=== PATIENT | male | born 1980 | race Caucasian/White ===

== ENCOUNTER → 2018-03-21 09:44 | Outpatient (CLI) | payer BC, SELFPAY ==
--- NOTE | 2018-03-21 09:52 | RAD_ITS ---
STUDY: X-RAY - ABDOMEN/PELVIS REASON FOR EXAM: Male, 37 years old. Right upper quadrant pain for 2 days. TECHNIQUE: AP supine and upright views of the abdomen and pelvis on 3 films. COMPARISON: None. FINDINGS: Normal visualized lung bases. There is a nonspecific pattern of gas in nondistended segments of small bowel and colon. There is no demonstrated free abdominal air. The visualized liver, spleen and kidneys are grossly normal in size and morphology. There are calcified phleboliths in the pelvis. There is a mild levoscoliosis of the lumbar spine when the patient isn't upright position. RAD/Abd Inc Decub and/or Erect IMPRESSION: Nonspecific bowel gas pattern. No free gas. Electronically Signed: Cliff Payton MD at 10:24 EDT , Service support ,
--- NOTE | 2018-03-21 09:54 | RAD_ITS ---
STUDY: X-RAY CHEST REASON FOR EXAM: Male, 37 years old. Shortness of breath, dyspnea. TECHNIQUE: PA and lateral views of the chest. COMPARISON: PA and lateral views of the chest on 3 films September 27, 2015. FINDINGS: The lungs are clear and expanded. There is no demonstrated pleural abnormality. Normal size heart. Normal mediastinum and catherine. Normal visualized pulmonary arteries. Normal visualized aortic arch and descending thoracic aorta. There is a stable mild levoscoliosis of the upper thoracic spine. Normal visualized ribs, clavicles, and shoulders. There is no demonstrated abnormality of the visualized soft tissue structures of the upper abdomen. RAD/Chest PA and Lateral IMPRESSION: No acute cardiopulmonary disease. Electronically Signed: Cliff Payton MD at 10:04 EDT , Service support ,
== END ==
PROVIDERS: Family Provider Family Medicine; PCP Family Medicine; Visit Provider Physician Assistant Medical
DX: R06.02 Shortness of breath (principal)
CPT/HCPCS: 71046; 74019

== ENCOUNTER → 2021-04-25 | Outpatient (CLI) | payer OTHER, SELFPAY ==
[2021-04-26 20:08] LABS: Covid Inpatient test code BILL Performed (.)
== END | disposition home or self-care (01) ==
PROVIDERS: PCP Family Medicine; Visit Provider Physician Assistant
DX: J02.9 Acute pharyngitis, unspecified (principal)
CPT/HCPCS: 87635; U0005; U0003

== ENCOUNTER 2021-04-30 06:57 | Emergency (ER) | payer OTHER, SELFPAY ==
[2021-04-30 06:58] VITALS: BP 186/101; PULSE 92; RESP 16; TEMP 36.8; O2SAT 100; BMI 33.7
--- NOTE | 2021-04-30 07:17 | EKG12_ITS ---
Test Reason : HTN Blood Pressure : / mmHG Vent. Rate : 074 BPM Atrial Rate : 074 BPM P-R Int : 152 ms QRS Dur : 086 ms QT Int : 400 ms P-R-T Axes : 073 036 035 degrees QTc Int : 444 ms Normal sinus rhythm Low voltage QRS (Limb Leads) Confirmed by DILEEP TAFOYA, MADHURI ([id number]), photography editor VISHNU LORENZANA ([id number]) on 05/02/2021 10:13:16 AM Referred By: TINA Confirmed By:MADHURI FALK MD
--- NOTE | 2021-04-30 07:17 | EDS_ITS ---
HPI History of Present Illness Chief Complaint: Hypertension Informant: patient Onset/Context/Timing Onset: Today Narrative Narrative: Patient present secondary to concerns for high blood pressure. He states he took his blood pressure this morning and noted to be 170/120. He does report having recent URI symptoms. [facility] week due to concern for possible strep throat and high blood pressure. That time his blood pressure was okay. He states the doctor told him his exam was not consistent with strep I did do a Covid test that was negative. He has been taking some [id number] cold medicine. He most recently has taken Benadryl, last dose of DayQuil was 2 days ago. On arrival to the emergency room blood pressure is 186/101. He denies chest pain or shortness of breath. He does have some remaining congestion that is improving. He does report having headaches but states he is also been drinking less caffeine than normal. [facility] Medical History Back pain Encounter for screening for COVID-19 Shoulder pain SOB (shortness of breath) Home Medications NK 04/25/21 [History Last Taken Unknown] Allergy/AdvReac Type Severity Reaction Status Date / Time erythromycin base Allergy Rash Verified 04/30/21 07:00 Surgical History Hx of tonsillectomy Social History Smoking Status: Current some day smoker tobacco type: cigars alcohol intake: current alcohol intake frequency: a few times a week Alcohol type: beer ROS ROS ED Constitutional Constitutional ED: Denies chills or fever(s) Eyes Eyes: Denies change in vision ENT ENT ED: Reports sore throat Cardiovascular Cardiovascular: Denies chest pain Respiratory/Chest Respiratory/Chest: Denies cough or dyspnea Gastrointestinal Gastrointestinal: Denies abdominal pain, diarrhea, nausea or vomiting Genitourinary Genitourinary ED: Denies dysuria Musculoskeletal Musculoskeletal: Denies back pain Integumentary Denies rash Neurologic Neurologic: Reports headache(s); Denies weakness Allergic/Immunologic Allergic/Immunologic ED: Denies urticaria EXAM Physical Exam Const Vital Signs: 04/30/21 06:58 04/30/21 07:00 04/30/21 07:54 Temperature 98.2 F Temperature Source Oral Pulse Rate 92 Respiratory Rate 16 Respiratory Pattern Normal Blood Pressure 186/101 H 158/95 H Blood Pressure Mean 129 116 Pulse Ox 100 Oxygen Delivery Method Room Air 04/30/21 08:12 Temperature Temperature Source Pulse Rate 76 Respiratory Rate Respiratory Pattern Blood Pressure 153/97 H Blood Pressure Mean 115 Pulse Ox 97 Oxygen Delivery Method Positive well nourished and well developed General Appearance ED: well developed HEENT Reports normocephalic and head/scalp atraumatic Eyes PERRL and EOMs intact bilaterally Neck supple Chest Wall inspection of chest normal and palpation of chest normal Resp normal respiratory effort and clear to auscultation bilaterally Cardio regular rate and regular rhythm GI normal to inspection, nondistended, normoactive bowel sounds Palpation: soft Extremity normal to inspection Neuro oriented x3 and no sensory deficits noted Sensorium / Orientation: alert Motor Exam: strength 5/5 throughout Psych mental status grossly normal Skin no rashes or lesions noted MDM MDM MDM Narrative Medical decision making narrative: EKG and chest x-ray obtained. Radiography Chest X-Ray - ED: 1 View, Read by ED Physician, Normal, Heart, Lungs and Mediastinum Diagnostic Testing: Radiology Impression Chest X-Ray 04/30/21 07:30 IMPRESSION: No acute abnormal cardiopulmonary finding. Electronically Signed: Rajendra Vick MD at 7:50 EDT Tel , Service support , EKG Initial EKG: Attestation: I personally reviewed and interpreted this EKG as follows: Interpretation: Sinus Rhythm (Sinus at 74 with no acute ischemia.) Treatment and Re-Evaluation Comments:: On arrival to the emergency room blood pressure is 186/101. I did review and records and the patient was seen at the [facility] on the eighth of this month. At that time his blood pressure was 140/80. At the time of my examination today blood pressure is 159/100. This is observed while patient undergoes EKG and chest x-ray. Chest x-ray per my interpretation reveals no acute abnormalities. No cardiac enlargement. EKG is unremarkable. Blood pressure of the right arm is 148/99. Blood pressure left arm is 152/106. This is come down without any intervention. We did discuss watching what cold medicine the patient may be taking as some of these have stimulants in them that may raise his blood pressure. I did ask him to keep a journal of his blood pressures and follow-up with his doctor next week. Return instructions are provided. Discharge Plan Triage Chief Complaint: Hypertension ED Provider: Isabel Ramirez Dx/Rx/DC Orders Clinical Impression: Hypertension Instructions: ED Hypertension, To Be Confirmed Prescriptions: No Action NK RF: 0 Primary Care Provider: Anthony Pagan Referrals: Anthony Pagan DO [Primary Care Provider] - 1 Week Disposition Disposition: Home, Self Care
--- NOTE | 2021-04-30 07:20 | NURSING ---
NO OLD EKGS
--- NOTE | 2021-04-30 07:30 | RAD_ITS ---
STUDY: X-RAY CHEST REASON FOR EXAM: Male, 40 years old. Cough TECHNIQUE: Portable, upright, AP chest radiograph COMPARISON: 03/21/2018 FINDINGS: The lungs are clear and expanded. There is no demonstrated pleural abnormality. Normal size heart. Normal mediastinum and catherine. Normal visualized pulmonary arteries. Normal visualized aortic arch and descending thoracic aorta. Normal visualized thoracic spine. Normal visualized ribs, clavicles, and shoulders. There is no demonstrated abnormality of the visualized soft tissue structures of the upper abdomen. RAD/Chest 1 View (Portable) IMPRESSION: No acute abnormal cardiopulmonary finding. Electronically Signed: Rajendra Vick MD at 7:50 EDT Tel , Service support ,
[2021-04-30 07:54] VITALS: BP 158/95
[2021-04-30 08:12] VITALS: BP 153/97; PULSE 76; O2SAT 97
[2021-04-30 08:27] VITALS: BP 153/100; PULSE 92; RESP 15; O2SAT 98
== END 2021-04-30 08:28 | disposition home or self-care (01) ==
PROVIDERS: Emergency Provider Emergency Medicine; PCP Family Medicine
DX: I10 Essential (primary) hypertension (principal); F17.290 Nicotine dependence, other tobacco product, uncomplicated
CPT/HCPCS: 71045; 93005; 99282

== ENCOUNTER → 2022-01-07 | Outpatient (CLI) | payer BC, SELFPAY ==
--- NOTE | 2022-01-07 09:35 | RAD_ITS ---
INDICATION: DYSPHAGIA EXAMINATION/TECHNIQUE: Barium oral contrast , gas bubbles, and barium pill were administered to the patient. Total Fluoroscopic Time: 0.36 minutes/seconds AND number of Fluoroscopic Images: 11 OR Radiation dosage index: COMPARISON: None. FINDINGS: No masses or strictures are identified. There is no hiatal hernia. The mucosal pattern is unremarkable. There is normal motility. Reflux was not elicited. RAD/Esophagus Dual Contrast IMPRESSION: Negative. Electronically Signed: Lalo Michelle, at 11:34 EDT ,
== END | disposition home or self-care (01) ==
PROVIDERS: PCP Family Medicine; Referring Provider Otolaryngology; Visit Provider Otolaryngology
DX: R13.11 Dysphagia, oral phase (principal)
CPT/HCPCS: 74221

== ENCOUNTER → 2022-03-23 | Outpatient (CLI) | payer BC, SELFPAY ==
--- NOTE | 2022-03-23 07:48 | MRI_ITS ---
STUDY: MRI LEFT ANKLE WITHOUT CONTRAST REASON FOR EXAM: Male, 41 years old. left ankle/hind foot osteoarthritis TECHNIQUE: Standardized fat and water weighted pulse sequences were obtained in all 3 orthogonal planes. COMPARISON: None. FINDINGS: Mild to moderate subchondral reactive edema is present on the lateral side and dorsal aspect of the navicular bone. A small intraosseous cyst is also present in the same region. Mild subchondral reactive edema is also present in the anterior process of the calcaneus. No visualized fractures or osteochondral defects. No joint effusion or loose bodies are present. There is slight vertical orientation of the talus. Normal subcutis adipose space. Normal posterior tibialis tendon. Normal flexor digitorum longus tendon. Normal flexor hallucis longus tendon. Normal peroneus longus and brevis tendons. Normal tibialis anterior tendon. Normal extensor hallucis longus tendon. Normal extensor digitorum longus tendons. Normal Achilles tendon and teno-osseous insertion. Normal plantar fascia. Normal plantar calcaneal tubercles. Normal intrinsic muscles of the rearfoot. Normal distal tibiofibular syndesmotic ligamentous complex. Normal lateral ligamentous complex. Normal subtalar ligaments and sinus tarsi. Normal deltoid ligamentous complexes. Normal plantar calcaneonavicular (spring) ligament. Normal tibiotalar articulation. Normal talar dome. Normal subtalar articulations. Normal talonavicular articulation. Normal calcaneocuboid articulation. Normal navicular-cuneiform articulations. MRI/Lower Ext Joint Only (Routine) IMPRESSION: 1. Mild to moderate subchondral reactive edema on the lateral side and dorsal aspect of the navicular bone. A small intraosseous cyst is also present in the same region. 2. Mild subchondral reactive edema in the anterior process of the calcaneus. 3. No visualized fractures or osteochondral defects. No joint effusion or loose bodies are present. 4. Slight vertical orientation of the talus. Electronically Signed: Artur Hodgson MD at 15:40 EDT ,
== END | disposition home or self-care (01) ==
PROVIDERS: PCP Family Medicine; Visit Provider Podiatrist
DX: M19.072 Primary osteoarthritis, left ankle and foot (principal)
CPT/HCPCS: 73721

== ENCOUNTER → 2022-04-15 | Outpatient (CLI) | payer BC, SELFPAY ==
[2022-04-15 08:22] LABS: Absolute Lymphocyte Count 2.36 X10^3/uL (0.83-4.51); Absolute Neutrophil Count 4.5 X10^3/uL (2.0-7.7); Basophil# 0.05 X10^3/uL; Basophil% 0.6 % (0-1); Eosinophil# 0.29 X10^3/uL; Eosinophils% 3.6 % (0-5); Hematocrit 42.1 % (40-54); Hemoglobin 15.1 g/dL (13.0-16.5); Lymphocyte # 2.36 X10^3/ul (0.83-4.51); Lymphocyte % 29.3 % (19-41); Mean Corp Hgb Conc 35.9 g/dL (32-36); Mean Corpuscular Hgb 30.4 pg (27.0-32.0); Mean Corpuscular Volume 84.7 fL (80-94); Mean Platelet Vol. 9.8 fl (6.2-12.0); Monocyte# 0.86 X10^3/uL; Monocyte% 10.7 % (0-10); NRBC Flagged by Analyzer 0 % (0-5); Neutrophil # 4.46 X10^3/uL (2.7-7.7); Neutrophil % 55.3 % (47-70); Platelet Count 251 K/mm3 (150-450); RBC Distribution Width CV 12.2 % (11.6-14.6); RBC Distribution Width SD 37.2 fl (35.1-43.9); Red Blood Count 4.97 M/mm3 (4.6-6.2); White Blood Count 8.1 K/mm3 (4.4-11.0)
[2022-04-15 08:51] LABS: ALB/GLOB Ratio 0.9 RATIO (0.9-2.4); AST(SGOT) 36 U/L (15-37); Alanine Aminotransfer ALT/SGPT 69 U/L (16-61); Albumin, Serum 3.5 g/dL (3.2-5.0); Alkaline Phosphatase 70 U/L (45-117); Anion Gap 7 (5-15); BUN 25 mg/dL (7-18); Calcium,Total 8.4 mg/dL (8.5-10.1); Chloride 107 mmol/L (98-107); Creatinine, Serum 0.92 mg/dL (0.70-1.30); EST Glomerular Filtration Rate 96 mL/min (>60); Est Glom Filt Rate - Afr Amer 116 mL/min (>60); Globulin 3.9 g/dL (2.2-4.2); Glucose 107 mg/dL (74-106); Potassium 4.2 mmol/L (3.5-5.1); Protein, Total 7.4 g/dL (6.4-8.2); Sodium Level 139 mmol/L (136-145)
== END | disposition home or self-care (01) ==
LOC: LAB 07:19
PROVIDERS: PCP Family Medicine; Referring Provider Family Medicine; Visit Provider Family Medicine
DX: Z01.818 Encounter for other preprocedural examination (principal)
CPT/HCPCS: 36415; 80053; 85025

== ENCOUNTER 2022-05-24 11:36 | Inpatient (IN) | payer BC, SELFPAY ==
[2022-05-24] VITALS (15 sets, daily range): BP systolic 90–155; BP diastolic 61–95; PULSE 61–92; RESP 14–16; TEMP 35.5–36.9; O2SAT 93–100; BMI 33.1
--- NOTE | 2022-05-24 | BON_PTH ---
PATIENT: ZAK XIE LOC: [facility] U#:[id number] AGE/SX: 41/M ROOM: [facility]318 RE05/26/[address]: Dr. Chandler Hilton DPM : 1980 BED: 1 DIS: 05/27/2022 SPEC #: [id number] RECD: 05/24/22 13:45 STATUS: LAURA LISBETH #: [id number] KAROL: 05/24/22 00:[address]: Chandler Hilton DEPT: SURGICAL PATHOLOGY RECD BY: Jonathan Rose ENTERED: 05/24/22 13:46 SP TYPE: Bone OTHR DR: Dr. Anthony Pagan, Tissues: Bone of foot, NOS Procedures: Decalcification bone/plaque Surgery Specimen Level IV HEADER OPERATION: Foot talonavicular joint fusion arthrodesis, subtalar joint PRE-OP DIAGNOSIS: Posterior tibial tendon dysfunction, pes planus, osteoarthritis talonavicular joint TISSUE SUBMITTED: Debrided bone talonavicular, subtalar MICROSCOPIC DIAGNOSIS Debrided bone talonavicular, subtalar: Fragments of bone, cartilage and fibroadipose tissue with reactive and degenerative osteoarthritic changes, clinically osteoarthritis of talonavicular joint. SJ:kody 05/29/2022 COMMENT Case has been reviewed in consultation with Dr. Lamas who concurs with the above diagnosis. IDC:AM MICROSCOPIC DESCRIPTION Slides are reviewed. GROSS DESCRIPTION Received in fixative is one container labeled with the patient's name and designated debrided bone talonavicular. The specimen consists of multiple irregular fragments of key-white bone and possible cartilage that in aggregate measure 5 x 5 x 0.2 cm. Pattern Drafter portions are submitted in one cassette after decalcification. / AM:kody 05/24/2022 Rest of the specimen is submitted in cassette #2 after decalcification. 05/29/22 TC:5 CPT: 87775, 33547
[2022-05-24] MEDS: Lactated Ringers 1,000 ML 15 ML IV ×2 (07:12→09:16)
[2022-05-24] MEDS: Cefazolin 2 GM in 0.9% Normal Saline 100 ML IV (08:11)
--- NOTE | 2022-05-24 08:11 | RAD_ITS ---
STUDY: X-RAY - LEFT FOOT CLINICAL: Male, 41 years old. Arthrodesis of the talocalcaneal joint. TECHNIQUE: 2 view(s) of the foot. COMPARISON: None. FINDINGS: Intraoperative imaging provided for arthrodesis of the talocalcaneal joint and first cuneiform and talar joints. RAD/Foot 2 Views IMPRESSION: Intraoperative imaging provided for arthrodesis as described. Electronically Signed: Basilio Josue MD at 12:08 EDT ,
--- NOTE | 2022-05-24 11:43 | PCM.OPRPT ---
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 He has tried extensive nonsurgical treatment - this has included but not limited to AFO bracing, custom foot orthotics, changes in shoegear, injection therapy, rest, and anti-inflammatories as well. Significant pain persists despite this. Xrays and MRI have been obtained pre operatively and reviewed.?This was discussed with him in detail. He has pain to the talonavicular and subtalar joints on the left foot, he has significant pes plano valgus. He would like to proceed with surgical intervention - we discussed subtalar joint arthrodesis and talonavicular joint arthrodesis on the left foot. The procedures were reviewed with him, as well as the goals, estimated recovery and the benefits vs risks with him. No weightbearing for at least 8 weeks, then protected weightbearing in [facility] for likely 4-6 weeks - could be longer. Can take 12-14 months for maximal healing - possibly longer. All the consent forms were reviewed with him and he freely signed them. No guarantees were given nor implied. No warrantees were given. Operative Procedure: He received a left lower extremity popliteal block per the anesthesia service. The patient was brought back into the operating room and was in the supine position.? The patient received general anesthesia per the anesthesiologist.?He was carefully placed in the supine position secured with a safety belt, and a well-padded pneumatic tourniquet was applied around the left thigh.? A time-out was performed and the patient was properly identified and surgical plan was confirmed.? The patient did receive prophylactic antibiotics for this procedure, which was cefazolin intravenous.? The left lower extremity was scrubbed, prepped and draped in the usual aseptic fashion. Attention was directed to the left foot and ankle. There was noted to be significant over pronation of the hindfoot with pes planovalgus. The left foot/ankle/leg were elevated and also exsanguinated using an Esmarch bandage and the left thigh pneumatic tourniquet was inflated to 300mmHg. Left subtalar joint arthrodesis: Attention was directed to the lateral ankle/hindfoot where a curvilinear skin incision was made overlying the posterior subtalar joint. This was done using a 15 blade. Careful dissection was completed down the sinus tarsi. The posterior subtalar joint was encountered and the capsule was incised. The posterior subtalar joint was visualized and noted to have significant degenerative changes, there was degenerative changes with wearing away of cartilage. There was also a large os trigonum to the posterior subtalar joint which was causing impingement to the posterior subtalar joint. The?cartilage was debrided from the posterior subtalar joint surfaces for arthrodesis, and using a bone rongeur the os trigonum was excised. The debridement and prep of the joint was done with a curette as well as a powered bethany and powered rasp, being sure not to cause osteonecrosis. All cartilage was debrided away to viable bone for good arthrodesis. Bone/cartilage debrided from the subtalar joint was sent to pathology for further evaluation. The site was flushed out with copious amounts of normal saline solution. The joint surfaces were fenestrated using a drill bit on each surface, and the surfaces were also further prepped using a osteotome and mallet to stimulate bleeding and good fusion. The talonavicular joint was then prepped and temporally fixated as noted below. The subtalar joint and heel were placed in neutral to slightly valgus position to the weightbearing surface and was fixated using 2 x 6.5mm cannulated Arthrex compression partially threaded screws using rigid open reduction internal fixation technique, with intra operative fluoroscopy guidance. In order to place the screws, a skin incision was made to the posterior plantar heel and careful blunt dissection was completed down to the bone. Once the screws were placed, there was noted to be good bone to bone compression and contact across the subtalar joint with the prepped subtalar joint surfaces in good alignment. The subtalar joint was very rigid and stable. The screws were in good position. This was confirmed with intra-operative fluoroscopy. The surgical site was flushed out with copious amounts of normal saline solution. The subcutaneous tissue layer were reapproximated using 2-0 Vicryl and the skin was reapproximated using 3-0 Nylon, and heel incision was reapproximated using 3-0 Nylon. The peroneal tendons were kept intact, and were carefully identified, retracted and protected as necessary. Left talonavicular joint arthrodesis: Attention was directed to the dorsal medial aspect of the talonavicular joint where a linear skin incision was made medial to the anterior tibial tendon overlying the talonavicular joint. This was done using a 15 blade. Careful dissection was completed down the joint capsule. The joint was encountered and the capsule was incised. The talonavicular joint was visualized and noted to have significant degenerative changes, there was degenerative changes with wearing away of cartilage, as well as a bone spur/osteophyte to the dorsal talar head. There was significant talar head uncovering due to pes planovalgus. The?cartilage was debrided from the talonavicular joint surfaces for arthrodesis. The debridement and prep of the joint was done with a curette as well as a powered bethany and powered rasp, being sure not to cause osteonecrosis. The bone spur/osteophyte was excised as well using a powered rasp. All cartilage was debrided away to viable bone for good arthrodesis. Bone/cartilage debrided from the talonavicular joint was sent to pathology for further evaluation. The site was flushed out with copious amounts of normal saline solution. The joint surfaces were fenestrated using a drill bit on each surface, and the surfaces were also further prepped using a osteotome and mallet to stimulate bleeding and good fusion. The talonavicular joint was placed into neutral position with proper talar head covering, the heel was in neutral to slightly valgus position to the weightbearing surface. The talonavicular joint was fixated using a Steinmann pin, and then the subtalar joint was fixated as noted above. Then the prepped talonavicular joint was fixated using 2 x 4.0mm cannulated Arthrex compression partially threaded screws using rigid open reduction internal fixation technique, with intra operative fluoroscopy guidance. The Steinmann pin was removed. Once the screws were placed, there was noted to be good bone to bone compression and contact across the talonavicular joint with the prepped joint surfaces in good alignment. The talonavicular joint was very rigid and stable. The screws were in good position. This was confirmed with intra-operative fluoroscopy. The surgical site was flushed out with copious amounts of normal saline solution. The subcutaneous tissue layer were reapproximated using 2-0 Vicryl and the skin was reapproximated using 3-0 Nylon, and heel incision was reapproximated using 3-0 Nylon. The anterior tibial and posterior tibial tendons were kept intact, and were carefully identified, retracted and protected as necessary. The left ankle and foot were put through range of motion, the talonavicular joint and subtalar joint were very rigid, otherwise rest of the foot and ankle were gliding normally with no popping, clicking or crepitus. There was negative anterior drawer sign. The foot was in good position clinically, it was very stable. The pneumatic tourniquet was deflated and there was immediate return of warmth and perfusion to the left foot with normal temperature gradient (total tourniquet time was 120 minutes). Capillary fill time was less than three seconds.?There was normal temperature to the foot. Hemostasis was achieved prior to closure. A dressing was applied, which consisted of Betadine-soaked adaptic, 4 x 4 gauze, Kerlix, and Bony bandages. A well padded below knee posterior splint was applied to the left foot/ankle/leg with heel offloaded. Of note all vital structures, including all vital neurovascular structures and tendon structures were properly identified, protected and retracted as necessary throughout the above operative procedure. The patient was transported from the operating room to the recovery room with vital signs stable and in good condition.? Postoperative orders were placed.?He was admitted for post operative pain control and observation. Left foot and ankle xrays, 3 views, were obtained post op. There was noted to be good alignment of the talonavicular and subtalar joint fusions with good bone to bone contact and screws in place. Ankle was in good position with intact mortise. No evidence of complication. Grafts/Implants Used: 2 x Arthrex 6.5mm screws, 2 x Arthrex 4mm screws Complications None
--- NOTE | 2022-05-24 12:00 | RAD_ITS ---
STUDY: LEFT FOOT X-RAY SERIES OF 1153 HOURS ON 05/24/2022 CLINICAL: 41-year-old male post-op fusion, that occurred on 05/24/2022. TECHNIQUE: 3 view(s) of the foot. COMPARISON: None. FINDINGS: There are 2 moderate sized surgical bolts coursing from the posterior calcaneus through the calcaneus into the posterior talus. There are 2 smaller surgical bolts coursing from the anterior talus to the posterior talus. There is no interval change in its appearance since the previous examination of the ankle on 05/24/2022. There no findings of an osteomyelitis or periostitis. There is no evidence of fractures or dislocations. RAD/Foot min 3 Views IMPRESSION: 1. Surgical fixation of the calcaneus to the talus, which occurred on 05/24/2022. 2. No interval change in the appearance of the foot since 05/24/2022. 3. No osteomyelitis or periostitis. 4. No fractures or dislocations Electronically Signed: David Leon MD at 18:32 EDT ,
--- NOTE | 2022-05-24 12:00 | RAD_ITS ---
STUDY: LEFT ANKLE X-RAY SERIES OF 149 HOURS ON 05/24/2022 REASON FOR EXAM: 41-year-old male post-op talar-calcaneal fusion. TECHNIQUE: 3 view(s) of the ankle. COMPARISON: None. FINDINGS: There are findings of a talocalcaneal fusion--performed on 05/24/2022. There is no evidence of fractures or dislocations. There is no evidence of an osteomyelitis or periostitis. The ankle mortise is balanced. The distal left tibia and fibula are normal. The surrounding soft tissues are normal. RAD/Ankle min 3 Views IMPRESSION: 1. Findings of a talocalcaneal fusion, which was performed on 05/24/2022. 2. No fractures or dislocations. 3. No osteomyelitis or periostitis. 4. Balanced left ankle mortise. 5. Normal distal left tibia and fibula. 6. Normal soft tissues. Electronically Signed: David Leon MD at 19:28 EDT ,
--- NOTE | 2022-05-24 12:23 | HP.PCM_ITS ---
HPI - General General Date of Admission: 05/24/22 Date of Service: 05/24/22 Chief Complaint: post op pain management HPI Narrative ZAK XIE, is a 41 M who presents s/p STJ and TN fusion left foot. He did well with the surgery with no complications. He is resting at this time and is going to be kept overnight for observation and pain management. [facility] Medical History (Updated 05/24/22 @ 12:[address] Chandler Hilton, DPRoderick) Alcohol use Arthritis Back pain Encounter for screening for COVID-19 Former smoker History of pain when walking Shoulder pain Wears glasses Home Medications NK 04/25/21 [History Last Taken Unknown] Allergy/AdvReac Type Severity Reaction Status Date / Time erythromycin base Allergy Rash Verified 05/24/22 07:04 Surgical History (Updated 05/20/22 @ 12:08 by Patti Carrero) Hx of tonsillectomy Social History Smoking Status: Former smoker alcohol intake: current alcohol intake frequency: a few times a week Alcohol type: beer Vital Signs Vital Signs Vital Signs: 05/24/22 07:04 05/24/22 07:04 Temperature 97.5 F L Temperature Source Temporal Pulse Rate 76 Respiratory Rate 16 Respiratory Pattern Normal Blood Pressure 155/84 H Blood Pressure Mean 107 Blood Pressure Source Monitor Blood Pressure Position Sitting Blood Pressure Location Right Arm Pulse Ox 100 Oxygen Delivery Method Room Air Weight Weight: 117 kg Body Mass Index (BMI) 33.1 Physical Exam Narrative Left foot/ankle/leg- dressing and splint is clean, dry and intact, CFT < 3 seconds to all toes, patient able to dorsiflex and plantarflex all toes, pain is controlled. Const alert, oriented x3 and no apparent distress Results Radiology Impression Foot X-Ray 05/24/22 08:11 IMPRESSION: Intraoperative imaging provided for arthrodesis as described. Electronically Signed: Basilio Josue MD at 12:08 EDT , Assessment & Plan Assessment/Plan (1) Osteoarthritis of left foot: (2) Foot pain, left: PLAN: Plan s/p left subtalar joint and talonavicular joint arthrodesis on 05/24/2022 - did well with no complication. No weightbearing left foot. Keep left foot elevated. Pain management: Tylenol, Oxyir, Dilaudid. DVT Prophylaxis: Lovenox 40mg subc once daily starting tomorrow. Keep dressing/splint clean, dry and intact left foot/ankle/leg.
[2022-05-24] MEDS: Cefazolin 1 GM/50 ML BAG IV (15:27)
[2022-05-24] MEDS: oxyCODONE 5 MG Tablet PO ×2 (15:27→20:14)
[2022-05-24] MEDS: Ondansetron 4 MG/2 ML Vial IV (15:27)
[2022-05-24] MEDS: 0.9% Saline Lock 10 ML Syringe IV (17:03)
[2022-05-24] MEDS: HYDROmorphone 1 MG/ML Syringe IV (17:03)
[2022-05-24] MEDS: Acetaminophen 325 MG Tablet 650 MG PO (20:14)
[2022-05-24 21:45] LABS: HIV - WCH Non-Reactive (Nonreactive); Hepatitis B Surface Antibody Non-Reactive; Hepatitis B Surface Antigen Non-Reactive (Nonreactive); Hepatitis C Antibody Non-Reactive (Nonreactive)
[2022-05-25] VITALS (7 sets, daily range): BP systolic 132–141; BP diastolic 73–86; PULSE 81–98; RESP 16–18; TEMP 36.5–36.7; O2SAT 94–99
[2022-05-25] MEDS: oxyCODONE 5 MG Tablet PO ×3 (00:19→09:17)
[2022-05-25] MEDS: Cefazolin 1 GM/50 ML BAG IV ×3 (00:19→15:07)
[2022-05-25] MEDS: Acetaminophen 325 MG Tablet 650 MG PO ×4 (04:28→22:45)
[2022-05-25 06:56] LABS: Absolute Lymphocyte Count 1.21 X10^3/uL (0.83-4.51); Absolute Neutrophil Count 11.8 X10^3/uL (2.0-7.7); Basophil# 0.02 X10^3/uL; Basophil% 0.1 % (0-1); Eosinophil# 0.01 X10^3/uL; Eosinophils% 0.1 % (0-5); Hematocrit 39.5 % (40-54); Hemoglobin 13.6 g/dL (13.0-16.5); Lymphocyte # 1.21 X10^3/ul (0.83-4.51); Lymphocyte % 8.4 % (19-41); Mean Corp Hgb Conc 34.4 g/dL (32-36); Monocyte# 1.36 X10^3/uL; Monocyte% 9.4 % (0-10); NRBC Flagged by Analyzer 0 % (0-5); Neutrophil # 11.77 X10^3/uL (2.7-7.7); Neutrophil % 81.7 % (47-70); Platelet Count 185 K/mm3 (150-450); RBC Distribution Width CV 12.6 % (11.6-14.6); RBC Distribution Width SD 39.8 fl (35.1-43.9); Red Blood Count 4.54 M/mm3 (4.6-6.2); White Blood Count 14.4 K/mm3 (4.4-11.0)
[2022-05-25 07:17] LABS: ALB/GLOB Ratio 0.9 RATIO (0.9-2.4); AST(SGOT) 24 U/L (15-37); Alanine Aminotransfer ALT/SGPT 54 U/L (16-61); Albumin, Serum 3.2 g/dL (3.2-5.0); Alkaline Phosphatase 55 U/L (45-117); Anion Gap 7 (5-15); BUN 16 mg/dL (7-18); BUN/Creat Ratio 17.5 RATIO (10-20); Calcium,Total 8.7 mg/dL (8.5-10.1); Chloride 107 mmol/L (98-107); Creatinine, Serum 0.92 mg/dL (0.70-1.30); EST Glomerular Filtration Rate 97 mL/min (>60); Est Glom Filt Rate - Afr Amer 117 mL/min (>60); Estimated Creatinine Clearance 124.09 ml/min; Globulin 3.4 g/dL (2.2-4.2); Glucose 130 mg/dL (74-106); Potassium 3.8 mmol/L (3.5-5.1); Protein, Total 6.6 g/dL (6.4-8.2); Sodium Level 139 mmol/L (136-145)
--- NOTE | 2022-05-25 10:00 | CASEMGMT ---
Addendum entered by Brayden Ramirez 05/25/22 13:42: VON HEBERT confirmed that crutches from ED are correct height for pt. Original Note: VON HEBERT NOTE: Per therapy, pt did better using crutches instead of walker and that he will need crutches to go home on. Shante charge entry, notified and states will get from ED supply. Pt had also voiced to therapy he is considering getting a knee scooter. Dr Hilton in to see pt. Scripts for both crutches and knee scooter obtained. Script for knee scooter given to pt, along w/DME list. Questions answered. Pt denies having any further discharge needs. Joanne HEWITT RN CM
--- NOTE | 2022-05-25 10:23 | PN_ITS ---
Subjective Subjective Patient was seen this morning. The block is wearing off and he relates to some increased pain, 6/10 at this time. He has no fever, chills, nausea, vomiting, or calf pain. Objective Data Objective Data Vital Signs: Vital Signs Temp Pulse Resp BP Pulse Ox O2 Del Method O2 Flow Rate 98.0 F 93 18 132/73 H 94 Room Air 95 05/25/22 09:10 05/25/22 09:10 05/25/22 09:10 05/25/22 09:10 05/25/22 09:10 05/25/22 09:10 05/25/22 04:43 Oxygen Flow Rate (L/min) 95 Oxygen Delivery Method Room Air Weight: 117 kg Body Mass Index (BMI) 33.1 Intake & Output: Intake and Output for Last 24 Hours 05/23/22 05/24/22 05/25/22 23:59 23:59 23:59 Intake Total 1160 / 1160 301 / 301 Output Total 800 / 800 Balance 360 / 360 301 / 301 Lab / Micro Data Result Diagrams: 05/25/22 06:35 05/25/22 06:35 Labs: Laboratory Results - last 24 hr 05/24/22 20:04: Hep Bs Antigen Non-Reactive, Hep Bs Antibody Non-Reactive, Hepatitis C Antibody Non-Reactive, HIV 1&2 Antibody Non-Reactive 05/25/22 06:35: WBC 14.4 H, RBC 4.54 L, Hgb 13.6, Hct 39.5 L, MCV 87.0, MCH 30.0, MCHC 34.4, RDW Std Deviation 39.8, RDW Coeff of Braulio 12.6, Plt Count 185, MPV 10.0, Immature Gran % (Auto) 0.300, Neut % (Auto) 81.7 H, Lymph % (Auto) 8.4 L, [place] % (Auto) 9.4, Eos % (Auto) 0.1, Baso % (Auto) 0.1, Absolute Neuts (auto) 11.8 H, Absolute Lymphs (auto) 1.21, Nucleated RBC % 0 05/25/22 06:35: Sodium 139, Potassium 3.8, Chloride 107, Carbon Dioxide 25.0, Anion Gap 7, BUN 16, Creatinine 0.92, Estim Creat Clear Calc 124.09, Est GFR (MDRD) Af Amer 117, Est GFR (MDRD) Non-Af 97, BUN/Creatinine Ratio 17.5, Glucose 130 H, Calcium 8.7, Total Bilirubin 0.50, AST 24, ALT 54, Alkaline Phosphatase 55, Total Protein 6.6, Albumin 3.2, Globulin 3.4, Albumin/Globulin Ratio 0.9 Radiography Diagnostic Testing: Radiology Impression Foot X-Ray 05/24/22 08:11 IMPRESSION: Intraoperative imaging provided for arthrodesis as described. Electronically Signed: Basilio Josue MD at 12:08 EDT , Ankle X-Ray 05/24/22 12:00 IMPRESSION: 1. Findings of a talocalcaneal fusion, which was performed on 05/24/2022. 2. No fractures or dislocations. 3. No osteomyelitis or periostitis. 4. Balanced left ankle mortise. 5. Normal distal left tibia and fibula. 6. Normal soft tissues. Electronically Signed: David Leon MD at 19:28 EDT , Foot X-Ray 05/24/22 12:00 IMPRESSION: 1. Surgical fixation of the calcaneus to the talus, which occurred on 05/24/2022. 2. No interval change in the appearance of the foot since 05/24/2022. 3. No osteomyelitis or periostitis. 4. No fractures or dislocations Electronically Signed: David Leon MD at 18:32 EDT , Physical Exam Narrative Left foot/ankle/leg- dressing and splint is clean, dry and intact, slight dried blood on heel otherwise no strikethrough, CFT < 3 seconds to all toes, patient able to dorsiflex and plantarflex all toes, pain is controlled. No calf pain bilateral. Const alert, oriented x3 and no apparent distress Assessment & Plan Assessment/Plan (1) Foot pain, left: (2) Osteoarthritis of left foot: PLAN: Plan s/p left subtalar joint and talonavicular joint arthrodesis on 05/24/2022. No weightbearing left foot. Keep left foot elevated. Pain management: Tylenol, Oxyir, Dilaudid. DVT Prophylaxis: Lovenox 40mg subc once daily starting tomorrow. Keep dressing/splint clean, dry and intact left foot/ankle/leg. Possible d/c home today if pain controlled with oral pain medication.
[2022-05-25] MEDS: 0.9% Saline Lock 10 ML Syringe IV ×4 (11:14→19:36)
[2022-05-25] MEDS: Enoxaparin 40 MG/0.4 ML Syringe SC (11:14)
[2022-05-25] MEDS: HYDROmorphone 1 MG/ML Syringe IV ×3 (11:14→19:37)
[2022-05-25] MEDS: oxyCODONE 5 MG Tablet 10 MG PO ×3 (15:05→22:45)
[2022-05-26] MEDS: HYDROmorphone 1 MG/ML Syringe IV ×4 (00:22→17:38)
[2022-05-26] MEDS: 0.9% Saline Lock 10 ML Syringe IV ×4 (00:22→17:38)
[2022-05-26 02:00] VITALS: BP 135/83; PULSE 69; RESP 16; TEMP 36.6; O2SAT 99
[2022-05-26] MEDS: oxyCODONE 5 MG Tablet 10 MG PO ×4 (03:07→19:52)
[2022-05-26 08:00] VITALS: BP 158/106; PULSE 89; RESP 18; TEMP 36.6; O2SAT 100
[2022-05-26] MEDS: Enoxaparin 40 MG/0.4 ML Syringe SC (08:37)
--- NOTE | 2022-05-26 08:42 | PN_ITS ---
Subjective Subjective Patient was seen this morning for follow up on left foot. He relates he had a rough night due to pain and itching. He has no rash, believes it is from the pain medication. He relates he did not get any sleep last night. He relates the pain is improved this morning. He has no fever. He denies any other complaints. No calf pain. Objective Data Objective Data Vital Signs: Vital Signs Temp Pulse Resp BP Pulse Ox O2 Del Method O2 Flow Rate 97.9 F 89 18 158/106 H 100 Room Air 95 05/26/22 08:00 05/26/22 08:00 05/26/22 08:00 05/26/22 08:00 05/26/22 08:00 05/26/22 08:00 05/26/22 02:00 Oxygen Flow Rate (L/min) 95 Oxygen Delivery Method Room Air Weight: 117 kg Body Mass Index (BMI) 33.1 Intake & Output: Intake and Output for Last 24 Hours 05/24/22 05/25/22 05/26/22 23:59 23:59 23:59 Intake Total 1160 / 1160 401 / 401 Output Total 800 / 800 Balance 360 / 360 401 / 401 Lab / Micro Data Result Diagrams: 05/25/22 06:35 05/25/22 06:35 Physical Exam Narrative Left foot/ankle/leg- dressing and splint is clean, dry and intact, slight dried blood on heel otherwise no strikethrough, removed dressing - incisions well coapted with no dehiscense and sutures are intact, no necrosis, no blistering, no fluctuance, no crepitus, no visible abscess, no streaking, normal temperatur e, CFT < 3 seconds to all toes, patient able to dorsiflex and plantarflex all toes, pain is controlled. Calf soft and supple with no calf pain bilateral. Const alert, oriented x3 and no apparent distress Assessment & Plan Assessment/Plan (1) Foot pain, left: (2) Osteoarthritis of left foot: PLAN: Plan s/p left subtalar joint and talonavicular joint arthrodesis on 05/24/2022. No weightbearing left foot. Keep left foot elevated. Pain management: Tylenol, Oxyir, Dilaudid. Will add in Benadryl 25mg PO TID to help with itching. DVT Prophylaxis: Lovenox 40mg subc once daily. Changed dressing left foot/ankle/leg - no evidence of infection or DVT at this time. Painted incision sites with betadine soln, and applied gauze, Kerlix and nayan dressing with overlying well padded below knee posterior splint with heel offloaded. Keep dressing/splint clean, dry and intact left foot/ankle/leg. Possible d/c home today if pain controlled with oral pain medication.
[2022-05-26 09:17] LABS: Absolute Lymphocyte Count 1.88 X10^3/uL (0.83-4.51); Absolute Neutrophil Count 7.1 X10^3/uL (2.0-7.7); Basophil# 0.03 X10^3/uL; Basophil% 0.3 % (0-1); Eosinophil# 0.12 X10^3/uL; Eosinophils% 1.2 % (0-5); Hematocrit 38.5 % (40-54); Hemoglobin 13.3 g/dL (13.0-16.5); Lymphocyte # 1.88 X10^3/ul (0.83-4.51); Mean Corp Hgb Conc 34.5 g/dL (32-36); Mean Corpuscular Hgb 29.6 pg (27.0-32.0); Mean Corpuscular Volume 85.6 fL (80-94); Mean Platelet Vol. 9.8 fl (6.2-12.0); Monocyte# 1.28 X10^3/uL; Monocyte% 12.3 % (0-10); NRBC Flagged by Analyzer 0 % (0-5); Neutrophil # 7.08 X10^3/uL (2.7-7.7); Neutrophil % 67.8 % (47-70); Platelet Count 172 K/mm3 (150-450); RBC Distribution Width CV 12.7 % (11.6-14.6); RBC Distribution Width SD 38.9 fl (35.1-43.9); White Blood Count 10.4 K/mm3 (4.4-11.0)
[2022-05-26 09:29] LABS: Anion Gap 6 (5-15); BUN 14 mg/dL (7-18); BUN/Creat Ratio 14.3 RATIO (10-20); Calcium,Total 8.6 mg/dL (8.5-10.1); Chloride 103 mmol/L (98-107); Creatinine, Serum 0.98 mg/dL (0.70-1.30); EST Glomerular Filtration Rate 89 mL/min (>60); Est Glom Filt Rate - Afr Amer 108 mL/min (>60); Glucose 101 mg/dL (74-106); Sodium Level 139 mmol/L (136-145)
[2022-05-26] MEDS: DiphenhydrAMINE 25 MG Capsule PO ×2 (10:24→19:49)
[2022-05-26 11:12] LABS: Hepatitis B Core Ab Total Negative (Negative)
[2022-05-26 14:06] VITALS: BP 139/82; PULSE 97; RESP 18; TEMP 37.7; O2SAT 97
[2022-05-26] MEDS: Acetaminophen 325 MG Tablet 650 MG PO ×2 (15:33→21:16)
[2022-05-26 20:00] VITALS: BP 153/97; PULSE 86; RESP 16; TEMP 36.6; O2SAT 98
[2022-05-27] MEDS: oxyCODONE 5 MG Tablet 10 MG PO ×2 (00:40→04:49)
[2022-05-27 02:00] VITALS: BP 130/72; PULSE 85; RESP 16; TEMP 36.8; O2SAT 99
[2022-05-27] MEDS: Acetaminophen 325 MG Tablet 650 MG PO (04:49)
[2022-05-27] MEDS: DiphenhydrAMINE 25 MG Capsule PO ×2 (04:49→13:04)
--- NOTE | 2022-05-27 07:20 | PCM.PROGNOTE ---
Subjective Subjective Patient was seen this morning for follow up on left foot. He relates pain has improved, but is needing to take the oxyir every 4 hours. He relates the benadryl helps with the itching but needs to take that every 8 hours. He has no fever. He relates to swelling sensation to left calf, and less so to right calf. Objective Data Objective Data Vital Signs: Vital Signs Temp Pulse Resp BP Pulse Ox O2 Del Method O2 Flow Rate 98.2 F 85 16 130/72 H 99 Room Air 95 05/27/22 02:00 05/27/22 02:00 05/27/22 02:00 05/27/22 02:00 05/27/22 02:00 05/27/22 02:00 05/27/22 02:00 Oxygen Flow Rate (L/min) 95 Oxygen Delivery Method Room Air Weight: 117 kg Body Mass Index (BMI) 33.1 Intake & Output: Intake and Output for Last 24 Hours 05/25/22 05/26/22 05/27/22 23:59 23:59 23:59 Intake Total 401 / 401 Output Total 2375 / 2875 1900 / 1900 Balance 401 / 401 -2375 / -2875 -1900 / -1900 Lab / Micro Data Result Diagrams: 05/26/22 09:03 05/26/22 09:03 Labs: Laboratory Results - last 24 hr 05/24/22 20:04: Hep B Core Total Ab Negative 05/26/22 09:03: WBC 10.4, RBC 4.50 L, Hgb 13.3, Hct 38.5 L, MCV 85.6, MCH 29.6, MCHC 34.5, RDW Std Deviation 38.9, RDW Coeff of Braulio 12.7, Plt Count 172, MPV 9.8, Immature Gran % (Auto) 0.400, Neut % (Auto) 67.8, Lymph % (Auto) 18.0 L, [place] % (Auto) 12.3 H, Eos % (Auto) 1.2, Baso % (Auto) 0.3, Absolute Neuts (auto) 7.1, Absolute Lymphs (auto) 1.88, Nucleated RBC % 0 05/26/22 09:03: Sodium 139, Potassium 4.0, Chloride 103, Carbon Dioxide 30.0, Anion Gap 6, BUN 14, Creatinine 0.98, Estim Creat Clear Calc 116.50, Est GFR (MDRD) Af Amer 108, Est GFR (MDRD) Non-Af 89, BUN/Creatinine Ratio 14.3, Glucose 101, Calcium 8.6 Physical Exam Narrative Left foot/ankle/leg- no strikethrough to dresing, dressing and splint with clean, dry and intact, post op alignment maintained, CFT < 3 seconds to all toes, patient able to dorsiflex and plantarflex all toes, pain appears controlled at this time. Calf soft and supple with no calf pain bilateral, but he relates to a swelling sensation. No evidence of compartment syndrome to lower extremities.. Const alert, oriented x3 and no apparent distress Assessment & Plan Assessment/Plan (1) Foot pain, left: (2) Osteoarthritis of left foot: PLAN: Plan s/p left subtalar joint and talonavicular joint arthrodesis on 05/24/2022. No weightbearing left foot. Keep left foot elevated. Pain management: Changed oxyir /acetaminophone to [place] 5/325mg 1-2 tabs q 4 hours prn pain. Benadryl 25mg PO TID prn to help with itching. DVT Prophylaxis: Lovenox 40mg subc once daily. Ordered venous doppler samantha ateral LE. Keep dressing clean, dry and intact left foot/ankle/leg. Possible d/c home today if pain controlled with oral pain medication.
--- NOTE | 2022-05-27 07:35 | VDLE_ITS ---
Reason For Study: Swelling RIGHT LEFT GSV is normal. GSV is normal. CFV is compressible, spontaneous, phasic, CFV is compressible, spontaneous, phasic, competent and demonstrates normal competent, and demonstrates normal augmentation. augmentation. FV is compressible, spontaneous, phasic, FV is compressible, spontaneous, phasic, competent and demonstrates normal competent and demonstrates normal augmentation. augmentation. POP V is compressible, spontaneous, phasic, POP V is compressible, spontaneous, phasic, competent and demonstrates normal competent and demonstrates normal augmentation. augmentation. T/P Trunk is compressible. T/P Trunk is compressible. PTV is compressible. PTV is compressible. RT PerV is compressible. LT PerV is compressible. Procedure This is a venous duplex using B-mode, color flow and spectral Doppler. Exam performed in department. A preliminary report was called and/or faxed to [facility]. VL/Venous Duplex US - Samir Extrem Interpretation Summary No evidence for acute deep venous thrombosis bilateral lower extremities with p atent and compressible bilateral great saphenous veins. Ordering Physician: Chandler Hilton Referring Physician: Anthony Pagan Performed By: Rena Royal RVT
[2022-05-27] MEDS: HYDROcodone Bitartrate/Apap 5/325 Tablet PO ×3 (08:58→17:35)
[2022-05-27] MEDS: Enoxaparin 40 MG/0.4 ML Syringe SC (08:59)
[2022-05-27 09:50] VITALS: BP 140/89; PULSE 97; RESP 16; TEMP 36.8; O2SAT 95
[2022-05-27 09:52] VITALS: BP 140/89; PULSE 97; RESP 16; TEMP 36.8; O2SAT 95
--- NOTE | 2022-05-27 10:55 | CASEMGMT ---
RN ANUP Face to Face with patient for initial transition planning/care coordination assessment. RN CM introduced self and role at [facility]. Patient lying in bed, alert and oriented, and father at bedside. Patient willing to participate in assessment and is able to answer all questions appropriately. Care providers, pharmacy, and demographics verified. Patient wishes to discharge home, denies need for home health at this time. Patient states he has no further needs or concerns at this time. CM to follow for discharge planning needs that may arise. PCP: Ej Specialists: none Preferred Pharmacy: [facility] Insurance: [employer] Prescription Benefit: yes Living Will/HPOA: none LNOK: , father Living Arrangements: Patient live with in a 2 story home with access to bed and bath on first floor. Patient is independent and able to ambulate stairs. Transportation: self, father DME/HHC: Patient has crutches and shower chair at home. No previous HHC or SNF Disposition Plan: Patient to discharge home with family support and follow-up plans in place. Rena HEWITT, RN, CM
[2022-05-27 15:00] VITALS: BP 133/103; PULSE 85; RESP 18; TEMP 36.7; O2SAT 96
--- NOTE | 2022-05-27 17:08 | PCM.DC ---
Discharge Instructions Activity Weight Bearing Status: No weight bearing (No weightbearing left foot) Keep extremity elevated above heart level: Left Leg (Keep left foot elevated with pillows for at least 50 minutes of every hour with heel offloaded.) Dressing / Incision Call your doctor if your incision/area has: Continuous Slow Oozing, Sudden Increased Bleeding and Foul Smelling Discharge Call your doctor if you observe: Fever of 101 or Higher, Shortness of breath, Chest pain, Increased palpitations (irregular heartbeat), Calf discomfort and Uncontrolled pain Change Dressing in: do not change dressing Remove Dressing in: do not remove dressing Cleanse incision/area with: Do not get Incision Wet and Keep Dressing Clean & Dry Follow Up Care Please Follow Up With: Chandler Hilton DPM When: This 05/30/2022 at the [facility] office [address] [place] [address], [facility] [place], [place] [phone] Follow up sooner if needed. Test Results: Test results from this visit will be discussed in further detail at your follow-up appointment, if applicable. Discharge Plan Admission Admit Date/Time: 05/26/22 18:35 Attending Provider: Chandler Hilton Primary Care Provider: Anthony Pagan Discharge Orders/Prescriptions Prescriptions: New hydrocodone-acetaminophen 5-325 mg Tablet 2 tab PO Q4H PRN PRN (Reason: pain) 4 Days Qty: 30 0RF diphenhydramine HCl [Banophen] 25 mg Capsule 25 mg PO TID PRN PRN (Reason: Itching) Qty: 0 0RF Eliquis 2.5 mg tablet 2.5 mg PO BID Qty: 60 0RF Referrals / Follow Up: Anthony Pagan DO [Primary Care Provider] - Disposition Disposition (needs filled in before D/C Order can be placed): Home, Self Care
--- NOTE | 2022-05-27 17:11 | PCM.DC.SUM ---
Providers Date of Admission: 05/26/22 Primary Care Physician: Dr. Anthony Pagan DO Reason For Visit: LT TALO NAVICULAR JOINT FUSION ARTHRODESIS Diagnosis Discharge Diagnosis (1) Foot pain, left: Status: Acute Code(s): M79.672 - Pain in left foot (2) Osteoarthritis of left foot: Status: Acute Code(s): M19.072 - Primary osteoarthritis, left ankle and foot Plan s/p left subtalar joint and talonavicular joint arthrodesis on 05/24/2022. No weightbearing left foot. Keep left foot elevated. Pain management: Changed oxyir /acetaminophone to [place] 5/325mg 1-2 tabs q 4 hours prn pain. Benadryl 25mg PO TID prn to help with itching. DVT Prophylaxis: Lovenox 40mg subc once daily. Ordered venous doppler samantha ateral LE. Keep dressing clean, dry and intact left foot/ankle/leg. Possible d/c home today if pain controlled with oral pain medication. Medications at Discharge Home Medications apixaban 2.5 mg tablet (Eliquis) 2.5 mg PO BID #60 tabs 05/27/22 diphenhydramine HCl 25 mg capsule (Banophen) 25 mg PO TID PRN PRN Itching #0 caps 05/27/22 hydrocodone-acetaminophen 5-325mg 5mg-325mg 2 tab PO Q4H PRN PRN pain 4 days #30 tabs 05/27/22 Physical Exam Narrative See my Podiatry progress note dated 05/27/22 for today's exam findings. Weight / BMI Weight Weight: 117 kg Body Mass Index (BMI) 33.1 ABG / Lab / Microbiology Data Result Diagrams: 05/26/22 09:03 05/26/22 09:03 D/C Instructions Weight Bearing Status: No weight bearing (No weightbearing left foot) Keep extremity elevated above heart level: Left Leg (Keep left foot elevated with pillows for at least 50 minutes of every hour with heel offloaded.) Call your doctor if your incision/area has: Continuous Slow Oozing, Sudden Increased Bleeding and Foul Smelling Discharge Call your doctor if you observe: Fever of 101 or Higher, Shortness of breath, Chest pain, Increased palpitations (irregular heartbeat), Calf discomfort and Uncontrolled pain Cleanse incision/area with: Do not get Incision Wet and Keep Dressing Clean & Dry Please Follow Up With: Chandler Hilton DPM When: This 05/30/2022 at the [facility] office [address], [address], [place], [place] [phone] Follow up sooner if needed. Meaningful Use Info Meaningful Use Diagnoses (Choose all that apply): None applicable Discharge Plan Admission Admit Date/Time: 05/26/22 18:35 Attending Provider: Chandler Hilton Primary Care Provider: Anthony Paagn Discharge Orders/Prescriptions Prescriptions: New hydrocodone-acetaminophen 5-325 mg Tablet 2 tab PO Q4H PRN PRN (Reason: pain) 4 Days Qty: 30 0RF diphenhydramine HCl [Banophen] 25 mg Capsule 25 mg PO TID PRN PRN (Reason: Itching) Qty: 0 0RF Eliquis 2.5 mg tablet 2.5 mg PO BID Qty: 60 0RF Referrals / Follow Up: Anthony Pagan DO [Primary Care Provider] - Disposition Disposition (needs filled in before D/C Order can be placed): Home, Self Care
[2022-05-27 17:39] VITALS: BP 140/88; PULSE 86; RESP 16; TEMP 36.6; O2SAT 95
== END 2022-05-27 18:15 | disposition home or self-care (01) | DRG 494 ==
LOC: SDC 11:58 → MS3 11:58
PROVIDERS: Admitting Provider Podiatrist; PCP Family Medicine; Referring Provider Podiatrist; Visit Provider Podiatrist
DX: M19.072 Primary osteoarthritis, left ankle and foot (principal); G89.29 Other chronic pain; L29.8 Other pruritus; R60.0 Localized edema; T40.2X5A Adverse effect of other opioids, initial encounter; Z79.01 Long term (current) use of anticoagulants; Z79.891 Long term (current) use of opiate analgesic; Z86.16 Personal history of COVID-19; Z87.891 Personal history of nicotine dependence
CPT/HCPCS: 36415; 73610; 73620; 73630; 76000; 80048; 80053; 85025; 86703; 86704; 86706; 86803; 87340; 88304; 88305; 88311; 93970; 97110; 97116; 97162; 97166; 97530; 99251; C1713; J7120; A4216; G0463; J2405

== ENCOUNTER → 2022-08-31 | Outpatient (CLI) | payer BC, SELFPAY ==
--- NOTE | 2022-08-31 08:48 | CT_ITS ---
STUDY: CT LEFT FOOT REASON FOR EXAM: Male, 42 years old. History of left foot surgery RADIATION DOSAGE (If Supplied By Facility): CTDIvol = ( 15.35 ) mGy, DLP = ( 375.9 ) mGycm TECHNIQUE: Thin section transaxial imaging of the foot was obtained, with sagittal and coronal reconstructed images. Individualized dose optimization techniques were used for this CT. COMPARISON: None. FINDINGS: There is postoperative change from arthrodesis of the subtalar joint and of the talonavicular joint with fixation screws in place. There is no definitive periosteal instrumentation lucency. Prior fixation screw tracts are noted through the anterior talus. There is no acute fracture. There is no decortication to suggest osteomyelitis. There is mild diffuse patchy osteopenia throughout the bones of the hindfoot. Normal metatarsi. Joints are normal alignment. Mild degenerative change of the first metatarsophalangeal joint.. Normal tibial and fibular sesamoid bones. Normal interphalangeal joint of the great toe. Normal phalanges of the great toe. Normal second through fifth metatarsophalangeal joints. Normal interphalangeal joints and phalanges of the lesser toes. The soft tissue structures are unremarkable. CT/Extremity Lower without Contra IMPRESSION: 1. Postoperative change from arthrodesis of the talonavicular and subtalar joints with no evidence of instrumentation failure. 2. Multifocal patchy osteopenia throughout the bones of the midfoot and hindfoot with no definitive evidence of osteomyelitis Electronically Signed: Jonathan Keen MD at 10:07 EST ,
== END | disposition home or self-care (01) ==
PROVIDERS: PCP Family Medicine; Visit Provider Podiatrist
DX: M19.079 Primary osteoarthritis, unspecified ankle and foot (principal); M85.80 Other specified disorders of bone density and structure, unspecified site
CPT/HCPCS: 73700

== ENCOUNTER 2022-09-03 10:44 | Outpatient (CLI) | payer BC, SELFPAY ==
[2022-09-03 11:53] LABS: Anion Gap 7 (5-15); BUN 22 mg/dL (7-18); BUN/Creat Ratio 22.2 RATIO (10-20); Calcium,Total 8.9 mg/dL (8.5-10.1); Chloride 107 mmol/L (98-107); Creatinine, Serum 0.99 mg/dL (0.70-1.30); EST Glomerular Filtration Rate 88 mL/min (>60); Est Glom Filt Rate - Afr Amer 107 mL/min (>60); Glucose 96 mg/dL (74-106); Sodium Level 140 mmol/L (136-145)
[2022-09-03 12:03] LABS: Vitamin D,25 Hydroxy 20.3 ng/mL
== END 2022-09-03 23:59 | disposition home or self-care (01) ==
LOC: LAB 10:45
PROVIDERS: PCP Family Medicine; Visit Provider Podiatrist
DX: M62.89 Other specified disorders of muscle (principal); M25.572 Pain in left ankle and joints of left foot; M19.072 Primary osteoarthritis, left ankle and foot; M79.672 Pain in left foot
CPT/HCPCS: 36415; 80048; 82306

== ENCOUNTER → 2022-11-04 | Outpatient (CLI) | payer BC, SELFPAY ==
--- NOTE | 2022-11-04 09:21 | NEURO ---
NCS and/or EMG Patient Report Ordering Doctor: Chandler Hilton DATE OF SERVICE: 11/04/22 Indication: Numbness on the lateral aspect of the left thigh following a surgery for left ankle fusion in May 2022. No history of low back pain. Findings: Nerve conduction studies were performed in the left lower extremity. The left peroneal motor study recording the extensor digitorum brevis showed a normal amplitude, normal distal latency and normal conduction velocity. No conduction block or focal slowing was present across the fibular neck. The left tibial motor study recording the abductor hallucis brevis showed a normal amplitude, normal distal latency and normal conduction velocity. The left sural sensory response showed a normal amplitude and conduction velocity. The left superficial peroneal sensory response showed a normal amplitude and conduction velocity. Given the technically challenging nature of obtaining nerve conduction responses in the lateral femoral cutaneous nerve, the study was first attempted on the right (asymptomatic) side. No suitable waveform could be obtained, therefore the left side was not attempted. Needle EMG of the left lower extremity muscles was performed. No denervation was present in any muscle. All motor unit morphology, activation and recruitment patterns were normal. Impression: This is a normal study. There is no electrophysiologic evidence of left lumbosacral radiculopathy or plexopathy. In addition, this study was insensitive for the detection of an isolated left lateral femoral cutaneous neuropathy (LFCN). If desired, a neuromuscular ultrasound of the LFCN could be considered for further evaluation. Ronald Bennett D.O. Multi Select Codes Neurology Neurology Interp Codes: 64984-17 [facility] [place] done w/nerv tst davalos (interp) and 70233-84 [facility] tst 5-6 studies (interp)
== END | disposition home or self-care (01) ==
PROVIDERS: PCP Family Medicine; Referring Provider Podiatrist; Visit Provider Podiatrist
DX: G57.92 Unspecified mononeuropathy of left lower limb (principal); T14.8XXA Other injury of unspecified body region, initial encounter; X58.XXXA Exposure to other specified factors, initial encounter
CPT/HCPCS: 95885; 95909

== ENCOUNTER → 2023-03-18 | Outpatient (CLI) | payer BC, SELFPAY ==
--- NOTE | 2023-03-18 07:19 | MRI_ITS ---
STUDY: MRI BRAIN WITH AND WITHOUT CONTRAST REASON FOR EXAM: Male, 42 years old. INTERMITTENT MYOCLONUS LEFT ARM, PARESTHESIA LEG, COPE TECHNIQUE: Standardized multiplanar fat and water weighted pulse sequences were obtained. IV 25ml clariscan was administered for the contrast portion of the examination. COMPARISON: None. FINDINGS: Normal size of the ventricles and extra-axial spaces for the patient''s age. There are 2 tiny punctate foci of increased signal intensity in the deep white matter tracts of the right frontal lobe and 2 similar lesions in the left l without mass effect or restricted diffusion. Differential diagnosis includes chronic small vessel ischemic changes, old posttraumatic changes nonspecific demyelination or inflammatory changes including Lyme disease. Normal bilateral basal ganglia. Normal thalami. There is no extra-axial fluid accumulation. Normal flow voids within the major intracranial circulation suggesting patency by spin echo criteria. Normal venous enhancement. There is no enhancing intra-axial or extra-axial abnormality. Normal sella turcica, pituitary gland, infundibular stalk, optic chiasm and hypothalamus. Normal tectal plate and pineal gland. Normal midbrain, mini and medulla. Normal cerebellum. Normal basal cisterns. Normal bilateral temporal bones. Normal bilateral internal auditory canals. No demonstrated orbital abnormality, within the constraints of a routine brain study. Normal visualized paranasal sinuses. Normal calvarium and skull base. Normal visualized soft tissue structures. Normal visualized upper cervical spine. MRI/Brain W/WO Contrast IMPRESSION: Minor nonspecific periventricular white matter changes without evidence for acute infarct. No evidence for obstructive hydrocephalus or mass. No enhancing lesions following contrast administration Electronically Signed: Chandler Trevino MD at 16:46 EDT ,
== END | disposition home or self-care (01) ==
LOC: MRI 07:08
PROVIDERS: PCP Family Medicine; Referring Provider Family Medicine; Visit Provider Family Medicine
DX: G25.3 Myoclonus (principal); R20.2 Paresthesia of skin; R51.9 Headache, unspecified
CPT/HCPCS: 70553; A9575

== ENCOUNTER → 2023-03-25 | Outpatient (CLI) | payer BC, SELFPAY ==
[2023-03-25 08:15] LABS: Hemoglobin 14.4 g/dL (13.0-16.5); Mean Corp Hgb Conc 34.3 g/dL (32-36); Mean Corpuscular Hgb 29.1 pg (27.0-32.0); Mean Corpuscular Volume 84.8 fL (80-94); Mean Platelet Vol. 9.7 fl (6.2-12.0); Platelet Count 196 K/mm3 (150-450); RBC Distribution Width CV 12.1 % (11.6-14.6); RBC Distribution Width SD 37.2 fl (35.1-43.9); Red Blood Count 4.95 M/mm3 (4.6-6.2); White Blood Count 5.2 K/mm3 (4.4-11.0)
[2023-03-25 08:54] LABS: Vitamin B12 437 pg/mL (211-911)
[2023-03-25 09:04] LABS: ALB/GLOB Ratio 0.9 RATIO (0.9-2.4); AST(SGOT) 26 U/L (15-37); Alanine Aminotransfer ALT/SGPT 50 U/L (16-61); Albumin, Serum 3.5 g/dL (3.2-5.0); Alkaline Phosphatase 77 U/L (45-117); Anion Gap 6 (5-15); BUN 18 mg/dL (7-18); BUN/Creat Ratio 17.6 RATIO (10-20); Calcium,Total 8.6 mg/dL (8.5-10.1); Chloride 106 mmol/L (98-107); Creatinine, Serum 1.02 mg/dL (0.70-1.30); EST Glomerular Filtration Rate 85 mL/min (>60); Est Glom Filt Rate - Afr Amer 103 mL/min (>60); Glucose 104 mg/dL (74-106); Potassium 3.7 mmol/L (3.5-5.1); Protein, Total 7.5 g/dL (6.4-8.2); Sodium Level 138 mmol/L (136-145); Thyroid Stim Hormone (TSH) 2.06 uIU/mL (0.358-3.74)
[2023-03-25 09:10] LABS: Hemoglobin A1c 5.2 % (3.8-5.6)
[2023-03-27 13:08] LABS: Vitamin D 1,25-Dihydroxy 55.6 pg/mL (24.8-81.5)
[2023-03-28 07:08] LABS: Vitamin B1, Thiamine 109.2 nmol/L (66.5-200.0)
== END | disposition home or self-care (01) ==
PROVIDERS: PCP Family Medicine; Referring Provider Psychiatry & Neurology Neurology; Visit Provider Psychiatry & Neurology Neurology
DX: G57.12 Meralgia paresthetica, left lower limb (principal); R73.9 Hyperglycemia, unspecified; E55.9 Vitamin D deficiency, unspecified
CPT/HCPCS: 36415; 80053; 82607; 82652; 82746; 83036; 84425; 84443; 85027

== ENCOUNTER → 2023-03-26 | Outpatient (CLI) | payer BC, SELFPAY ==
--- NOTE | 2023-03-26 06:56 | EKG12_ITS ---
Test Reason : NARCOLEPSY& CATAPLEX Blood Pressure : / mmHG Vent. Rate : 068 BPM Atrial Rate : 068 BPM P-R Int : 154 ms QRS Dur : 086 ms QT Int : 424 ms P-R-T Axes : 067 052 048 degrees QTc Int : 450 ms Normal sinus rhythm Normal ECG Confirmed by MERVAT TAFOYA, CHRISTI ([id number]), writer editor JOYCE HALLMAN ([id number]) on 03/31/2023 11:32:37 AM Referred By: Steven Pineda Confirmed By:KIAH CROWELL MD
== END | disposition home or self-care (01) ==
PROVIDERS: PCP Family Medicine; Referring Provider Psychiatry & Neurology Neurology; Visit Provider Psychiatry & Neurology Neurology
DX: G47.411 Narcolepsy with cataplexy (principal)
CPT/HCPCS: 93005

== ENCOUNTER → 2023-04-03 | Outpatient (CLI) | payer BC, SELFPAY | END | disposition home or self-care (01) | PROVIDERS: PCP Family Medicine; Referring Provider Psychiatry & Neurology Neurology; Visit Provider Psychiatry & Neurology Neurology | DX: G47.411 Narcolepsy with cataplexy (principal) | CPT/HCPCS: 95819 ==

== ENCOUNTER 2023-09-28 22:16 | Emergency (ER) | payer BC, SELFPAY ==
[2023-09-28 22:16] VITALS: BP 163/100; PULSE 90; RESP 16; TEMP 36.6; O2SAT 99; BMI 35.6
--- NOTE | 2023-09-28 22:56 | EKG12_ITS ---
Test Reason : CP Blood Pressure : / mmHG Vent. Rate : 087 BPM Atrial Rate : 087 BPM P-R Int : 146 ms QRS Dur : 086 ms QT Int : 382 ms P-R-T Axes : 071 013 043 degrees QTc Int : 459 ms Normal sinus rhythm Normal ECG Confirmed by Seven Alfaro ([id number]), market editor VISHNU LORENZANA ([id number]) on 09/30/2023 9:15:41 AM Referred By: ASHOK Confirmed By:Seven Alfaro
--- NOTE | 2023-09-28 23:05 | RAD_ITS ---
STUDY: X-RAY CHEST REASON FOR EXAM: Male, 43 years old. chest pain TECHNIQUE: PA and lateral views of the chest. COMPARISON: 04/30/2021. FINDINGS: The lungs are clear and expanded. There is no demonstrated pleural abnormality. Normal size heart. Normal mediastinum and catherine. Normal visualized pulmonary arteries. Normal visualized aortic arch and descending thoracic aorta. Normal visualized thoracic spine. Normal visualized ribs, clavicles, and shoulders. There is no demonstrated abnormality of the visualized soft tissue structures of the upper abdomen. RAD/Chest PA and Lateral IMPRESSION: Normal x-ray examination of the chest for age. Electronically Signed: Angélica Rosales MD at 23:18 EST ,
[2023-09-28 23:07] LABS: Absolute Lymphocyte Count 1.99 X10^3/uL (0.83-4.51); Absolute Neutrophil Count 4.4 X10^3/uL (2.0-7.7); Basophil# 0.06 X10^3/uL; Basophil% 0.8 % (0-1); Eosinophil# 0.27 X10^3/uL; Eosinophils% 3.7 % (0-5); Hematocrit 40.1 % (40-54); Hemoglobin 14.8 g/dL (13.0-16.5); Lymphocyte # 1.99 X10^3/ul (0.83-4.51); Lymphocyte % 27.1 % (19-41); Mean Corp Hgb Conc 36.9 g/dL (32-36); Mean Corpuscular Hgb 30.3 pg (27.0-32.0); Mean Corpuscular Volume 82.2 fL (80-94); Mean Platelet Vol. 9.9 fl (6.2-12.0); Monocyte# 0.59 X10^3/uL; NRBC Flagged by Analyzer 0 % (0-5); Neutrophil # 4.37 X10^3/uL (2.7-7.7); Neutrophil % 59.7 % (47-70); Platelet Count 230 K/mm3 (150-450); RBC Distribution Width CV 12.5 % (11.6-14.6); RBC Distribution Width SD 37.7 fl (35.1-43.9); Red Blood Count 4.88 M/mm3 (4.6-6.2); White Blood Count 7.3 K/mm3 (4.4-11.0)
[2023-09-28 23:16] VITALS: BP 150/90; PULSE 83; RESP 17; O2SAT 96
[2023-09-28 23:32] LABS: D-Dimer Quantitative (DVT/PE) 0.66 FEU/ug/m (0.27-0.49)
--- NOTE | 2023-09-28 23:44 | CT_ITS ---
STUDY: CTA CHEST REASON FOR EXAM: Male, 43 years old. chest pain with elevated d-dimer RADIATION DOSAGE (If Supplied By Facility): CTDIvol = ( 12.43 ) mGy, DLP = ( 550.29 ) mGycm TECHNIQUE: The examination was performed with the intravenous administration of IV 100mL Isovue-370. Post-processing of the angiographic images was performed, with multiplanar reformation and 3D reconstruction. Individualized dose optimization techniques were used for this CT. COMPARISON: None. FINDINGS: Normal enhancement of the main pulmonary artery and right and left pulmonary arteries. Normal enhancement of the bilateral peripheral pulmonary arteries. There is no demonstrated pulmonary embolism. Normal thoracic aorta and visualized great vessels. There is no demonstrated aortic dissection. Normal heart and pericardium. Normal mediastinum. Normal hilar regions. Normal visualized trachea and bronchi. The lungs are well expanded. Mild right lower lobe posterior subpleural atelectasis. Mild mosaic pattern, cannot exclude small airway disease. Remainder of the lung garcia are otherwise clear. Normal pleura. Normal chest wall structures. Normal osseous structures. Upper abdomen reveal multiple splenic granulomata. Possible diffuse fatty liver, remainder of the visualized upper abdominal structures unremarkable. CT/CTA Chest W/WO Contrast IMPRESSION: Negative CTA chest examination, without a demonstrated pulmonary embolism or arterial dissection. Mild right lower lobe posterior subpleural atelectasis, possible underlying small airway disease. Otherwise no acute cardiopulmonary process. Electronically Signed: Angélica Rosales MD at 0:28 EST ,
[2023-09-28] MEDS: Labetalol (Prefilled) 20 MG/4 ML 10 MG IV (23:59)
[2023-09-28] MEDS: 0.9% Normal Saline (1000mL) 1,000 ML 999 ML IV (23:59)
[2023-09-29] VITALS: BP 156/86; PULSE 88; RESP 18; O2SAT 97
[2023-09-29 00:02] LABS: AST(SGOT) 43 U/L (15-37); Alanine Aminotransfer ALT/SGPT 56 U/L (16-61); Albumin, Serum 3.3 g/dL (3.2-5.0); Alkaline Phosphatase 83 U/L (45-117); Anion Gap 10 (5-15); BUN 16 mg/dL (7-18); BUN/Creat Ratio 15.8 RATIO (10-20); Bilirubin, Direct < 0.05 mg/dL (0.00-0.30); Calcium,Total 8.1 mg/dL (8.5-10.1); Chloride 108 mmol/L (98-107); Creatinine, Serum 1.01 mg/dL (0.70-1.30); EST Glomerular Filtration Rate 86 mL/min (>60); Est Glom Filt Rate - Afr Amer 104 mL/min (>60); Estimated Creatinine Clearance 134.46 ml/min; Globulin 3.8 g/dL (2.2-4.2); Glucose 172 mg/dL (74-106); Lipase 65 U/L (13-75); Magnesium 2.2 mg/dL (1.6-2.6); Potassium 3.5 mmol/L (3.5-5.1); Protein, Total 7.1 g/dL (6.4-8.2); Sodium Level 142 mmol/L (136-145); Troponin-I HS 4 pg/mL (3.0-78.0)
[2023-09-29 01:00] VITALS: BP 153/82; PULSE 83; RESP 12; O2SAT 97
[2023-09-29 01:03] LABS: Troponin-I HS 6 pg/mL (3.0-78.0)
--- NOTE | 2023-09-29 01:16 | EX.ED.DYSGE1 ---
HPI History of Present Illness Chief Complaint: Chest Pain Informant: patient Narrative Narrative: Patient is a 43-year-old male with no significant past medical history. He states he was sitting watching the Super Bowl roughly 2 hours prior to arrival when he developed some left upper abdominal/lower chest discomfort. He states the pain was more grabbing or pressure. He denies any nausea vomiting diaphoresis or shortness of breath associated with this. He states he does not have a known or documented history of hypertension hyperlipidemia diabetes he denies any nicotine use or illicit drug use. He states he waited a few hours to see if the symptoms with spontaneous resolved they would not do so and with concern for potential cardiac event he comes in for evaluation [facility] Medical History (Updated 09/29/23 @ 01:[address] Prince Jonas DO) Alcohol use Arthritis Back pain Encounter for screening for COVID-19 Former smoker History of pain when walking Shoulder pain Wears glasses Home Medications NK 09/28/23 [History Last Taken Unknown] Allergy/AdvReac Type Severity Reaction Status Date / Time erythromycin base Allergy Mild Rash Verified 09/28/23 22:16 Surgical History Hx of tonsillectomy Social History Smoking Status: Former smoker alcohol intake: current alcohol intake frequency: a few times a week Alcohol type: beer ROS ROS ED Constitutional Constitutional ED: Denies chills or fever(s) Eyes Eyes: Denies change in vision ENT ENT ED: Denies sore throat Cardiovascular Cardiovascular: Reports chest pain; Denies palpitations or racing heartbeat Respiratory/Chest Respiratory/Chest: Denies cough or dyspnea Gastrointestinal Gastrointestinal: Reports abdominal pain; Denies diarrhea, nausea or vomiting Genitourinary Genitourinary ED: Denies dysuria Musculoskeletal Musculoskeletal: Denies back pain or myalgias Integumentary Denies rash Neurologic Neurologic: Denies headache(s) Hematologic/Lymphatic Hematologic/Lymphatic: Denies easy bleeding or easy bruising EXAM Physical Exam Const Vital Signs: 09/28/23 22:16 09/28/23 22:42 09/28/23 23:16 Temperature 97.8 F Temperature Source Temporal Pulse Rate 90 83 Respiratory Rate 16 17 Respiratory Effort Normal Non-Labored Blood Pressure 163/100 H 150/90 H Blood Pressure Mean 121 110 Pulse Ox 99 96 Oxygen Delivery Method Room Air 09/29/23 00:00 09/29/23 01:00 09/29/23 01:28 Temperature Temperature Source Pulse Rate 88 83 81 Respiratory Rate 18 12 15 Respiratory Effort Blood Pressure 156/86 H 153/82 H 145/74 H Blood Pressure Mean 109 105 97 Pulse Ox 97 97 97 Oxygen Delivery Method Room Air Room Air Positive well nourished and well developed General Appearance ED: well developed; Negative for pallor HEENT HEENT Narrative: Normocephalic atraumatic Eyes PERRL and EOMs intact bilaterally General Eye ED: Negative for scleral icterus Neck supple Neck Narrative: No nuchal rigidity or meningeal signs noted Chest Wall palpation of chest normal Chest Narrative: No bony deformity or crepitance or reproducible pain with palpation of the chest wall Resp normal respiratory effort and clear to auscultation bilaterally Cardio regular rate and regular rhythm Rate: other Other Details: Heart is regular rate and rhythm without murmurs rubs or gallop Radial and carotid pulses are equal and symmetric GI non-distended GI Narrative: Abdomen is soft and nondistended with normal active bowel sounds. There is mild pain on palpation in the left upper quadrant without voluntary guarding or rigidity. No pulsatile mass or fluid wave Auscultation: normoactive bowel sounds Palpation: soft Back/Spine no CVA tenderness Extremity normal to inspection Extremity Narrative: No asymmetric edema no pitting edema negative Homans' sign bilaterally Neuro oriented x3, CN's II-XII intact bilaterally and no sensory deficits noted Sensorium / Orientation: alert Motor Exam: strength 5/5 throughout Psych mental status grossly normal Skin no rashes or lesions noted General Skin Exam: Negative for jaundice or pallor MDM MDM MDM Narrative Medical decision making narrative: Patient presented to the ER hypertensive but otherwise with stable vitals. He is low risk cardiovascular disease but with sudden onset of left-sided lower chest/upper abdominal pain a basic cardiac workup was obtained. Patient's initial troponin was 4 and delta was 6 indicating no acute coronary syndrome. As pulmonary embolus or dissection is a possibility of the cause of his symptoms a D-dimer was obtained as he is low risk but was slightly elevated so CTA was added. CTA revealed no acute findings. Blood work also showed that his lipase is normal going against pancreatitis and liver enzymes are also normal going against potential biliary colic. He was given labetalol and his blood pressure reduced to 15 to 25% which is the goal reduction in ER. He does not have signs of endorgan damage. Therefore with improvement of blood pressure and overall negative workup and resolution of symptoms there is no need for admission and is otherwise safe for discharge. History & Record Review Discussion w/independent historian: Patient Lab Data Attestation: I reviewed the patient's lab results. Labs: Laboratory Results - last 24 hr 09/28/23 09/29/23 22:42 00:40 WBC 7.3 RBC 4.88 Hgb 14.8 Hct 40.1 MCV 82.2 MCH 30.3 MCHC 36.9 H RDW Std Deviation 37.7 RDW Coeff of Braulio 12.5 Plt Count 230 MPV 9.9 Immature Gran % (Auto) 0.700 Neut % (Auto) 59.7 Lymph % (Auto) 27.1 [place] % (Auto) 8.0 Eos % (Auto) 3.7 Baso % (Auto) 0.8 Absolute Neuts (auto) 4.4 Absolute Lymphs (auto) 1.99 Nucleated RBC % 0 D-Dimer Quant (PE/DVT) 0.66 H* Sodium 142 Potassium 3.5 Chloride 108 H Carbon Dioxide 24.0 Anion Gap 10 BUN 16 Creatinine 1.01 Estim Creat Clear Calc 134.46 Est GFR (MDRD) Af Amer 104 Est GFR (MDRD) Non-Af 86 BUN/Creatinine Ratio 15.8 Glucose 172 H Calcium 8.1 L Magnesium 2.2 Total Bilirubin 0.50 Direct Bilirubin < 0.05 AST 43 H ALT 56 Alkaline Phosphatase 83 Troponin I High Sens 4 6 Total Protein 7.1 Albumin 3.3 Globulin 3.8 Lipase 65 Radiography Diagnostic Testing: Clinical Impression(s) from Imaging Studies Chest X-Ray 09/28/23 23:05 IMPRESSION: Normal x-ray examination of the chest for age. Electronically Signed: Angélica Rosales MD at 23:18 EST , Chest CTA 09/28/23 23:44 IMPRESSION: Negative CTA chest examination, without a demonstrated pulmonary embolism or arterial dissection. Mild right lower lobe posterior subpleural atelectasis, possible underlying small airway disease. Otherwise no acute cardiopulmonary process. Electronically Signed: Angélica Rosales MD at 0:28 EST , Chest x-ray as interpreted by the emergency medicine physician reveals no acute infiltrate pneumothorax or pleural effusion Discharge Plan Triage Chief Complaint: Chest Pain ED Provider: Prince Jonas Dx/Rx/DC Orders Clinical Impression: Nonspecific chest pain, Hypertension Instructions: ED Chest Pain, Uncertain Cause, ED Hypertension, To Be Confirmed Prescriptions: No Action NK Primary Care Provider: Anthony Pagan Referrals: Anthony Pagan DO [Primary Care Provider] - Activity Restrictions/Additional Instructions: Your workup today showed no sign of heart damage or blood clot but your blood pressure has been elevated. Follow-up with your family doctor to confirm hypertension and return to the ER should you have any further concerns Disposition Disposition: Home, Self Care Discharge Date/Time: 09/29/23 01:30
[2023-09-29 01:28] VITALS: BP 145/74; PULSE 81; RESP 15; O2SAT 97
== END 2023-09-29 01:30 | disposition home or self-care (01) ==
PROVIDERS: Emergency Provider Emergency Medicine; PCP Family Medicine; Visit Provider Emergency Medicine
DX: R07.9 Chest pain, unspecified (principal); Z87.891 Personal history of nicotine dependence; I10 Essential (primary) hypertension
CPT/HCPCS: 71046; 71275; 80048; 80076; 83690; 83735; 84484; 85025; 85379; 93005; 96361; 96374; 99283; J7030; Q9967; A4216

== ENCOUNTER → 2023-11-13 | Outpatient (CLI) | payer BC, SELFPAY | END | disposition home or self-care (01) | LOC: SL 11:46 | PROVIDERS: PCP Family Medicine; Referring Provider Family Medicine; Visit Provider Family Medicine | DX: G47.10 Hypersomnia, unspecified (principal); I10 Essential (primary) hypertension | CPT/HCPCS: 95806 ==

== ENCOUNTER → 2023-12-02 | Outpatient (CLI) | payer BC, SELFPAY | END | disposition home or self-care (01) | LOC: SL 11:45 | PROVIDERS: PCP Family Medicine; Visit Provider Family Medicine | DX: Z00.00 Encounter for general adult medical examination without abnormal findings (principal) ==

== ENCOUNTER → 2024-07-01 | Outpatient (CLI) | payer BC, SELFPAY ==
[2024-07-01 17:11] LABS: Hemoglobin A1c 5.5 % (3.8-5.6)
[2024-07-01 17:19] LABS: AST(SGOT) 20 U/L (15-37); Alanine Aminotransfer ALT/SGPT 41 U/L (16-61); Albumin, Serum 3.6 g/dL (3.2-5.0); Alkaline Phosphatase 81 U/L (45-117); Anion Gap 7 (5-15); BUN 23 mg/dL (7-18); BUN/Creat Ratio 21.3 RATIO (10-20); Calcium,Total 9.1 mg/dL (8.5-10.1); Chloride 107 mmol/L (98-107); Cholesterol 182 mg/dL (200); Creatinine, Serum 1.08 mg/dL (0.70-1.30); EST Glomerular Filtration Rate 79 mL/min (>60); Est Glom Filt Rate - Afr Amer 96 mL/min (>60); Globulin 3.7 g/dL (2.2-4.2); Glucose 126 mg/dL (74-106); High Density Lipoprotein 34 mg/dL; Potassium 3.8 mmol/L (3.5-5.1); Protein, Total 7.3 g/dL (6.4-8.2); Sodium Level 141 mmol/L (136-145); Triglycerides 293 mg/dL; Very Low Density Lipoprotein 59 mg/dL (5-40)
== END | disposition home or self-care (01) ==
LOC: LAB 15:49
PROVIDERS: PCP Family Medicine; Referring Provider Family Medicine; Visit Provider Family Medicine
DX: Z00.00 Encounter for general adult medical examination without abnormal findings (principal); I10 Essential (primary) hypertension
CPT/HCPCS: 36415; 80053; 80061; 83036; 84443

== ENCOUNTER → 2025-07-04 | Outpatient (CLI) | payer BC, SELFPAY ==
[2025-07-04 18:12] LABS: AST(SGOT) 25 U/L (<=37); Alanine Aminotransfer ALT/SGPT 28 U/L (<=46); Albumin, Serum 4.4 g/dL (3.5-5.0); Alkaline Phosphatase 72 U/L (40-129); Anion Gap 12 (5-15); BUN 27 mg/dL (4-19); BUN/Creat Ratio 26.3 RATIO (10-20); Calcium,Total 9.7 mg/dL (7.6-11.0); Carbon Dioxide 25.1 mmol/L (21.0-32.0); Chloride 103 mmol/L (98-108); Cholesterol 212 mg/dL (<=200); Globulin 3.1 g/dL (2.2-4.2); Glucose 113 mg/dL (70-99); Low Density Lipoprotein Calc. 130 mg/dL; Potassium 4.0 mmol/L (3.3-5.1); Triglycerides 268 mg/dL; Very Low Density Lipoprotein 54 mg/dL (5-40); cholesterol:hdl ratio screen 6.27
== END | disposition home or self-care (01) ==
LOC: BFHLAB 14:54
PROVIDERS: PCP Family Medicine; Visit Provider Family Medicine
DX: Z00.00 Encounter for general adult medical examination without abnormal findings (principal)
CPT/HCPCS: 36415; 80053; 80061; 83036